=== PATIENT | male | born 1995 | race Caucasian/White ===

== ENCOUNTER 2017-06-13 11:07 | Emergency (ER) | payer MEDICAID ==
[~2017-06-13] VITALS: Ht 182.9 cm; Wt 95.9 kg
[2017-06-13 11:11] VITALS: BP 149/88
== END 2017-06-13 12:01 | disposition home or self-care (01) ==
LOC: ED 12:00
DX: K08.89 Other specified disorders of teeth and supporting structures (principal)
CPT/HCPCS: 99283

== ENCOUNTER 2017-11-02 12:09 | Emergency (ER) | payer MEDICAID ==
[~2017-11-02] VITALS: Ht 182.9 cm; Wt 96.4 kg
[2017-11-02] MEDS ORDERED: DEXAMETHASONE 4 MG TABLET ONE (12:54)
[2017-11-02 12:58] VITALS: BP 140/92
[2017-11-02] MEDS ORDERED: DEXAMETHASONE 4 MG TABLET PO ONE (13:00)
== END 2017-11-02 13:03 | disposition home or self-care (01) ==
LOC: ED 12:57
DX: J02.0 Streptococcal pharyngitis (principal)
CPT/HCPCS: 99283